=== PATIENT | female | born 1985 | race Caucasian/White ===

== ENCOUNTER 2018-07-14 22:33 | Emergency (ER) | payer MEDICAID ==
[~2018-07-14] VITALS: Ht 170.2 cm; Wt 79.4 kg
[2018-07-14 22:37] VITALS: BP 141/90
--- NOTE | 2018-07-14 22:39 | NUR ---
TO LOBBY A/W BED, XRAY , AMB, VSS ERMD NOTED
--- NOTE | 2018-07-14 23:30 | NUR ---
PT AMBULATED TO ER BED 1 AT THIS TIME
--- NOTE | 2018-07-15 00:46 | NUR ---
PT BIB SELF C/O COUGH X1 WEEK W/ SPUTUM. RR EVEN AND UNLABORED, BL BS CLEAR THROUGHOUT, PT IN NO RESPIRATORY DISTRESS. PT SITTING IN BED SIDE CHAIR.
[2018-07-15 01:15] VITALS: BP 133/81
--- NOTE | 2018-07-15 01:15 | NUR ---
Patient discharged with v/s stable. Written and verbal after care instructions given and explained. Patient verbalized understanding. Ambulatory with steady gait. All questions addressed prior to discharge. Advised to follow up with PMD.
== END 2018-07-15 01:15 | disposition home or self-care (01) ==
LOC: MED 22:33
DX: N39.0 Urinary tract infection, site not specified (principal); R05 Cough
CPT/HCPCS: 71045; 81002; 81025; 99283; Q0092